=== PATIENT | male | born 1980 | race Caucasian/White ===

== ENCOUNTER 2018-08-29 01:41 | Inpatient (IN) | payer MEDICAID ==
[~2018-08-29] VITALS: Ht 180.3 cm; Wt 86.0 kg
[2018-08-29] VITALS (17 sets, daily range): BP systolic 98–144; BP diastolic 65–94
[2018-08-29] MEDS ORDERED: LORazepam 2 mg/ml vial IV ONE (01:50)
[2018-08-29] MEDS ORDERED: morphine 4 MG/ML inj SYRINge IV ONE (01:50)
[2018-08-29] MEDS ORDERED: ondansetron/PF 4mg/2ml inj IV ONE ×3 (01:50→02:55)
[2018-08-29] MEDS ORDERED: morphine 4 MG/ML inj SYRINge IV PRN ×3 (02:55→12:30)
[2018-08-29] MEDS ORDERED: normal saline 1000ML IV soln IVB ONE (02:55)
[2018-08-29 03:40] LABS: HEMATOCRIT 43.3 % (42.0-52.0)
[2018-08-29 03:50] LABS: ALANINE AMINOTRANSFERASE 41 U/L (12-78); ALBUMIN/GLOBULIN RATIO 1.3 (1.1-1.5); ALKALINE PHOSPHATASE 42 IU/L (46-116); ANION GAP 10 (8-16); ASPARTATE AMINO TRANSFERASE 17 U/L (10-37); BILIRUBIN,TOTAL 0.3 MG/DL (0.1-1.0); BLOOD UREA NITROGEN 17 MG/DL (7-18); BUN/CREATININE RATIO 17.5 (5.4-32.0); CHLORIDE 107 MMOL/L (99-107); CREATININE 0.97 MG/DL (0.60-1.10); GLUCOSE 113 MG/DL (70-104); LIPASE 245 U/L (73-393); SODIUM 145 MMOL/L (135-145); TOTAL CARBON DIOXIDE 27.9 MMOL/L (24-32); TOTAL PROTEIN 7.1 G/DL (6.4-8.2); eGFR 88 ML/MIN
[2018-08-29 04:02] LABS: BASOPHILS % (AUTO) 0.1 % (0-1); EOSINOPHILS # (AUTO) 0.2 X10'3 (0-0.9); EOSINOPHILS % (AUTO) 1.3 % (0-6); HEMOGLOBIN 14.7 g/dl (14.0-17.9); LYMPHOCYTES # (AUTO) 0.9 X10'3 (1.1-4.8); LYMPHOCYTES % (AUTO) 5.6 % (21-51); MEAN CORPUSCULAR HEMOGLOBIN 31.6 PG (27.0-31.0); MEAN CORPUSCULAR HGB CONC 33.9 % (33.0-36.5); MEAN CORPUSCULAR VOLUME 93.4 FL (78-98); MONOCYTES % (AUTO) 6.1 % (2-12); NEUTROPHILS # (AUTO) 13.7 X10'3 (1.8-7.7); NEUTROPHILS % (AUTO) 86.9 % (42-75); PLATELET COUNT 208 X10'3 (140-440); RED BLOOD COUNT 4.64 X10'6 (4.70-6.10); RED CELL DISTRIBUTION WIDTH 13.5 % (11.5-14.5); WHITE BLOOD COUNT 15.8 X10'3 (4.5-11.0)
[2018-08-29] MEDS ORDERED: normal saline 1000ML IV soln IV ONE (04:05)
[2018-08-29] MEDS ORDERED: piperacillin/tazo 3.375gm/50ml 50 ML IV ONE (04:05)
[2018-08-29] MEDS ORDERED: HYDROmorphone 1 mg/ml syringe IV ONE (04:10)
[2018-08-29] MEDS ORDERED: mag hydrox/Alum hydrox/simeth 30ml oral suspension PO PRN (04:30)
[2018-08-29] MEDS ORDERED: HYDROcodone/acetaminophen 5mg/325mg tablet PO PRN (04:30)
[2018-08-29] MEDS ORDERED: acetaminophen 325mg tablet PO PRN (04:30)
[2018-08-29] MEDS ORDERED: diphenhydrAMINE 25mg capsule PO PRN (04:30)
[2018-08-29] MEDS ORDERED: HYDROmorphone 1 mg/ml syringe IV PRN (04:30)
[2018-08-29] MEDS ORDERED: bisacodyl 10mg suppository rectal RC PRN (04:30)
[2018-08-29] MEDS ORDERED: magnesium hydroxide 30ml (MOM) UD suspension PO PRN (04:30)
[2018-08-29] MEDS ORDERED: ondansetron/PF 4mg/2ml inj IV PRN ×2 (04:30→12:30)
[2018-08-29] MEDS ORDERED: morphine 2 MG/ML inj. syringe IV PRN ×2 (04:30)
[2018-08-29] MEDS ORDERED: HYDROcodone/acetaminophen 10/325mg tab PO PRN ×2 (04:30→13:35)
[2018-08-29] MEDS: normal saline 1000ml 1,000 ML IV SCH ×3 (04:39→23:42)
[2018-08-29 06:59] LABS: INR 1.1 INR; PARTIAL THROMBOPLASTIN TIME 26 SECONDS (22-32); PROTHROMBIN TIME 10.7 SECONDS (9.0-12.0)
[2018-08-29 07:06] LABS: MAGNESIUM 1.9 MG/DL (1.5-2.4); PHOSPHORUS 3.4 MG/DL (2.3-4.5)
[2018-08-29] MEDS: pantoprazole 40 MG vial IV SCH ×2 (07:35→19:40)
[2018-08-29] MEDS: docusate sod 100mg capsule PO SCH ×2 (07:36→19:40)
[2018-08-29] MEDS: HYDROmorphone 1 mg/ml syringe IV PRN ×2 (09:40→18:58)
[2018-08-29] MEDS ORDERED: ceFAZolin 1000mg inj ONE ×2 (11:43→12:13)
[2018-08-29] MEDS ORDERED: BUPIVAcaine/PF 2.5mg/ml (0.25%) 10ml vial ONE (11:43)
[2018-08-29] MEDS ORDERED: sevoflurane 250ml liquid IH ONE (11:55)
[2018-08-29] MEDS ORDERED: dexamethasone sod phosphate 10mg/ml inj ONE (11:55)
[2018-08-29] MEDS ORDERED: fentaNYL/PF 50MCG/1 ML 2ML syringe ONE ×2 (12:02→13:14)
[2018-08-29] MEDS ORDERED: midazolam 2 mg/2 ml injection ONE (12:03)
[2018-08-29] MEDS ORDERED: propofol inj 20 ML IV ONE (12:04)
[2018-08-29] MEDS: piperacillin/tazo 4.5gm/100ml 100 ML IV SCH ×2 (12:10→19:40)
[2018-08-29] MEDS ORDERED: ketorolac trometh. 30mg/ml inj. ONE (12:13)
[2018-08-29] MEDS ORDERED: ondansetron/PF 4mg/2ml inj ONE (12:13)
[2018-08-29] MEDS ORDERED: LIDOcaine 2% (20mg/ml) 5ml vial ONE (12:14)
[2018-08-29] MEDS ORDERED: ringers solution, lacted 1,000 ML IV SCH (12:29)
[2018-08-29] MEDS ORDERED: proCHLORperazine 10 MG/2 ml inj IV PRN (12:30)
[2018-08-29] MEDS ORDERED: meperidine/PF 25mg/ml syringe IV PRN ×3 (12:30)
[2018-08-29] MEDS ORDERED: NO HOME MEDS (14:50)
[2018-08-29] MEDS: ceFAZolin 1GM/D5W- ADD-VANTAGE 50 ML IV SCH ×2 (16:04→23:42)
[2018-08-29] MEDS ORDERED: temazepam 15mg capsule PO PRN (21:00)
[2018-08-30 00:02] VITALS: BP 100/59
[2018-08-30] MEDS: piperacillin/tazo 4.5gm/100ml 100 ML IV SCH ×2 (03:58→12:00)
[2018-08-30 07:35] LABS: BASOPHILS % (AUTO) 0.2 % (0-1); EOSINOPHILS # (AUTO) 0.2 X10'3 (0-0.9); EOSINOPHILS % (AUTO) 1.4 % (0-6); HEMOGLOBIN 13.4 g/dl (14.0-17.9); LYMPHOCYTES # (AUTO) 1.8 X10'3 (1.1-4.8); LYMPHOCYTES % (AUTO) 16.1 % (21-51); MEAN CORPUSCULAR HEMOGLOBIN 31.8 PG (27.0-31.0); MEAN CORPUSCULAR HGB CONC 33.5 % (33.0-36.5); MEAN CORPUSCULAR VOLUME 94.9 FL (78-98); MEAN PLATELET VOLUME 8.1 FL (7.4-10.4); MONOCYTES # (AUTO) 0.9 X10'3 (0-0.9); MONOCYTES % (AUTO) 8.1 % (2-12); NEUTROPHILS # (AUTO) 8.2 X10'3 (1.8-7.7); NEUTROPHILS % (AUTO) 74.2 % (42-75); PLATELET COUNT 192 X10'3 (140-440); RED BLOOD COUNT 4.21 X10'6 (4.70-6.10); RED CELL DISTRIBUTION WIDTH 13.5 % (11.5-14.5)
[2018-08-30 07:48] LABS: ALBUMIN 3.3 G/DL (3.4-5.0); ANION GAP 7 (8-16); BLOOD UREA NITROGEN 12 MG/DL (7-18); BUN/CREATININE RATIO 12.2 (5.4-32.0); CALCIUM 8.8 MG/DL (8.5-10.1); CHLORIDE 108 MMOL/L (99-107); CREATININE 0.98 MG/DL (0.60-1.10); GLUCOSE 103 MG/DL (70-104); POTASSIUM 3.9 MMOL/L (3.5-5.1); SODIUM 142 MMOL/L (135-145); TOTAL CARBON DIOXIDE 26.7 MMOL/L (24-32); eGFR 87 ML/MIN
[2018-08-30 07:51] VITALS: BP 109/66
[2018-08-30] MEDS: pantoprazole 40 MG vial IV SCH (08:14)
[2018-08-30] MEDS: docusate sod 100mg capsule PO SCH (08:14)
[2018-08-30] MEDS: normal saline 1000ml 1,000 ML IV SCH (10:27)
[2018-08-30] MEDS ORDERED: HYDR-4383 PO (10:57)
[2018-08-30] MEDS ORDERED: DOCU-28 PO (10:57)
[2018-08-30 11:39] VITALS: BP 100/67
[2018-08-30] MEDS ORDERED: lactobacillus rhamnosus 10,000 MMU CELLS/CAPSULE PO SCH (20:00)
== END 2018-08-30 13:25 | disposition home or self-care (01) | DRG 227 ==
LOC: ER 01:44 → ED HOLD 04:27 → SUR 3N 05:13
PROVIDERS: ADMIT Family Medicine; ATTEND Family Medicine
PROC: 0WUF0JZ Supplement Abdominal Wall with Synthetic Substitute, Open Approach (ICD-10-PCS; principal; 2018-08-29 11:55)
DX: K40.30 Unilateral inguinal hernia, with obstruction, without gangrene, not specified as recurrent (principal); K56.609 Unspecified intestinal obstruction, unspecified as to partial versus complete obstruction; D72.829 Elevated white blood cell count, unspecified; E86.0 Dehydration
CPT/HCPCS: 36415; 74176; 80048; 80053; 83605; 83690; 83735; 83880; 84100; 85025; 85610; 85730; 87070; 96361; 96374; 96375; 99285; A6257; A7000; C1758; C1781; C9113; G0378; J0690; J1100; J1170; J1885; J2001; J2060; J2250; J2270; J2405; J2543; J2704; J3010; J3490; J7030; J7120